=== PATIENT | female | born 1990 | race Caucasian/White ===

== ENCOUNTER 2019-12-22 06:15 | Day surgery (SDC) | payer MEDICAID, SELFPAY ==
[2019-12-19 13:20] LABS: HCG,QUAL RESULT NEGATIVE (NEGATIVE)
[~2019-12-22] VITALS: Ht 157.5 cm; Wt 63.5 kg
[2019-12-22 07:00] LABS: HCG,QUAL RESULT NEGATIVE (NEGATIVE)
[2019-12-22] MEDS ORDERED: PROPOFOL 200MG/ 20ML VIAL (DIPRIVAN) IV ONE (07:24)
[2019-12-22] MEDS ORDERED: SUGAMMADEX SODIUM 200 MG/2 ML VIAL IV ONE (07:24)
[2019-12-22] MEDS ORDERED: LIDOCAINE 2%, 20 ML MDV INJ ONE (07:24)
[2019-12-22] MEDS ORDERED: DEXAMETHASONE SOD PHOSPHATE 4 MG/ML VIAL IVP ONE (07:24)
[2019-12-22] MEDS ORDERED: ONDANSETRON HCL 4 MG/2 ML VIAL IVP ONE ×2 (07:24→12:20)
[2019-12-22] MEDS ORDERED: NS IRRIG SOLN 1000 ML IR ONE (07:24)
[2019-12-22] MEDS ORDERED: OXYMETAZOLINE HCL 0.05% NASAL SPRAY NS ONE (07:24)
[2019-12-22] MEDS ORDERED: fentaNYL CITRATE 250 MCG/5 ML AMP IV ONE (07:24)
[2019-12-22] MEDS ORDERED: LIDOCAINE/EPI 1% 1:100000 20 ML VIAL INJ ONE (07:24)
[2019-12-22] MEDS ORDERED: MIDAZOLAM HCL 5 MG/5 ML VIAL IVP ONE (07:24)
[2019-12-22] MEDS ORDERED: SEVOFLURANE 15 MIN GAS INH ONE (07:24)
[2019-12-22] MEDS ORDERED: WATER FOR IRRIGATION,STERILE 1,000 ML IRRIG.SOLN IR ONE (07:24)
[2019-12-22] MEDS ORDERED: ROCURONIUM BROMIDE 10 MG/ML (ZEMURON) IV ONE (07:24)
[2019-12-22] MEDS ORDERED: LR 1,000 ML IV.SOLN IV ONE (07:24)
[2019-12-22] MEDS ORDERED: LR 1,000 ML IV SCH (08:30)
[2019-12-22] MEDS ORDERED: MEPERIDINE HCL/PF 25 MG/ML DISP.SYRIN IVP PRN (08:30)
[2019-12-22] MEDS ORDERED: hydrALAZINE HCL 20 MG/ML VIAL IVP PRN (08:30)
[2019-12-22] MEDS ORDERED: ONDANSETRON HCL 4 MG/2 ML VIAL IVP PRN (08:30)
[2019-12-22] MEDS ORDERED: HYDROmorphone 1 MG INJ. 1 MG/ML AMPUL IVP PRN ×2 (08:30)
[2019-12-22] MEDS ORDERED: LABETALOL 100 MG/ 20ML VIAL IVP PRN (08:30)
[2019-12-22] MEDS ORDERED: MIDAZOLAM HCL 2 MG/2 ML VIAL (VERSED) IVP PRN (08:30)
[2019-12-22] MEDS ORDERED: METOCLOPRAMIDE HCL 10 MG/2 ML VIAL IVP PRN (08:30)
[2019-12-22] MEDS ORDERED: MEPERIDINE HCL/PF 25 MG/ML DISP.SYRIN ONE (10:23)
[2019-12-22] MEDS ORDERED: ONDANSETRON HCL 4 MG/2 ML VIAL ONE (12:38)
[2019-12-22 14:29] VITALS: BP_SYST 133
== END 2019-12-22 14:20 | disposition home or self-care (01) ==
LOC: SDS 06:15 → SMU 06:17 → SDS 14:20
PROVIDERS: ATTEND Otolaryngology
DX: J34.89 Other specified disorders of nose and nasal sinuses (principal); J32.9 Chronic sinusitis, unspecified; J34.3 Hypertrophy of nasal turbinates; J30.1 Allergic rhinitis due to pollen; D38.5 Neoplasm of uncertain behavior of other respiratory organs; F41.9 Anxiety disorder, unspecified; Z20.828 Contact with and (suspected) exposure to other viral communicable diseases; Z79.899 Other long term (current) drug therapy
CPT/HCPCS: 30140; 30520; 31255; 31256; 31296; 84703 ×2; 88304; 88305; 88311; C1726; C9399; J1100; J2001; J2175; J2250; J2405; J2704; J3010; J7120; U0003